=== PATIENT | female | born 1995 | race Caucasian/White ===

== ENCOUNTER 2017-06-06 16:17 | Outpatient (CLI) | payer BC, OTHER ==
[2017-06-06 17:15] VITALS: BP 123/66; PULSE 98; RESP 16; TEMP 98.2
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
== END 2017-06-06 17:05 | disposition home or self-care (01) ==
LOC: FBPOP 16:17
PROVIDERS: ATTEND Obstetrics & Gynecology Obstetrics
DX: O99.352 Diseases of the nervous system complicating pregnancy, second trimester (principal); G89.11 Acute pain due to trauma; Z3A.26 26 weeks gestation of pregnancy
CPT/HCPCS: 99213

== ENCOUNTER 2017-08-13 17:00 | Outpatient (CLI) | payer BC, OTHER ==
[2017-08-13 18:25] LABS: Appearance,Urine Clear (Clear); Bilirubin,Urine Negative (Negative); Blood,Urine Negative (Negative); Color,Urine Light Yellow; Glucose,Urine (UA) Negative (Negative); Ketones,Urine Negative (Negative); Leukocyte Esterase,Urine Negative (Negative); Nitrite,Urine Negative (Negative); PH, Urine 6.5 (5.0-8.0); Protein,Urine Negative (Negative); Specific Gravity,Urine 1.006 (1.001-1.035); Urobilinogen,Urine <2.0 mg/dL (<2.0)
[2017-08-13 18:26] LABS: Anisocytosis Slight; Basophils % (A) 0 %; Eosinophils # (A) 0.1 k/uL (0-0.7); Eosinophils % (A) 1 %; HCT 35.1 % (34.0-46.0); HGB 11.5 gm/dL (11.4-16.0); Lymphocytes # (A) 1.5 k/uL (1.0-4.8); Lymphocytes % (A) 18 %; MCH 28.6 pg (25.0-35.0); MCHC 32.7 g/dL (31.0-37.0); MCV 87.5 fL (80.0-100.0); Mean Platelet Volume 9.9; Monocytes # (A) 0.4 k/uL (0-1.0); Monocytes % (A) 4 %; Neutrophils % (A) 74 %; Platelet Count 176 k/uL (150-450); RBC 4.01 m/uL (3.80-5.40); RDW 16.7 % (11.5-15.5); WBC 8.1 k/uL (3.8-10.6)
[2017-08-13 18:48] VITALS: TEMP 98.3
[2017-08-13 19:13] LABS: ALT 23 U/L (9-52); AST 26 U/L (14-36); LDH 480 U/L (313-618)
[2017-08-13 19:42] VITALS: BP 133/82; PULSE 82; RESP 17
--- NOTE | 2017-08-20 08:08 | P.MSEPDOC ---
Presenting Problems - Arrival Data Date of Arrival on Unit: 08/13/17 Time of Arrival on Unit: 17:00 Mode of Transport: Ambulatory - Complaint OB-Reason for Admission/Chief Complaint: PIH Comment: headache and emesis x 1 this am and yesterday am x 1. heacache for 2 days. tylenol does not help. Medical History - Information : 1 Para: 0 Term: 0 : 0 Abortions: Spontaneous or Elective: 0 Number of Living Children: 0 - Gestational Age Gestational Age by WOODY (wks/days): 36 Weeks and 0 Days - History Complications: Other Comment: twin gestation. Review of Systems - Review of Systems Constitutional: No problems Breast: No problems ENT: No problems Cardiovascular: No problems Respiratory: No problems Gastrointestinal: No problems Genitourinary: No problems Musculoskeletal: No problems Neurological: No problems Skin: No problems Comment: headache Vital Signs - Temperature Temperature: 98.3 F Temperature Source: Oral - Pulse Right Brachial Pulse Rate: 82 Pulse Assessment Method: Automatic Cuff - Respirations Respiratory Rate: 17 Oxygen Delivery Method: Room Air - Blood Pressure Right Arm Blood Pressure: 133/82 Blood Pressure Mean: 99 Blood Pressure Source: Automatic Cuff Medical Screen Scoring (Pre) - Cervical Exam Dilation: Exam Deferred Effacement: Exam Deferred Membranes: Intact - Uterine Contractions Frequency: > or = 36 weeks =2 Duration: N/A Intensity: N/A - Maternal Vital Signs Maternal Temperature: N/A Maternal Blood Pressure: Systolic >139 = 2 Signs of Preeclampsia: Headache = 1 Maternal Respirations: N/A - Pain Assessment Pain Location and Character: Head Pain Scale Used: Numeric (1 - 10) Pain Intensity: 5 Pain Description: *Acute Pain Frequency: Intermittent Pain Duration: 2 Pain Duration Units: Days Pain Behavior: None Exhibited, Vocalization Pharmacological Interventions: PRN Medication - Maternal Trauma Maternal Trauma: N/A - Assessment Baseline FHR: 135 A 125 B Heart Rate - NICHD Category: Category I (Normal) = 0 NST: Reactive - Total Score Total Score (Pre): 5 - Level of Risk Level of Risk: Low (0-5) Physician Notification (Pre) - Physician Notified Physician Notified Date: 08/13/17 Physician Notified Time: 17:50 Physician/Practitioner Notifed:: katerina Spoke With: katerina New Order Received: Yes - Notification Comment Comment: [facility] labs and ua to be sent. Medical Screen Scoring (Post) - Cervical Exam Dilation: 1-3 cm = 1 Effacement: More than 50% = 2 Membranes: Intact - Uterine Contractions Frequency: N/A Duration: N/A Intensity: N/A - Maternal Vital Signs Maternal Temperature: N/A Maternal Blood Pressure: Systolic >139 = 2 Signs of Preeclampsia: Headache = 1 Maternal Respirations: N/A - Pain Assessment Pain Location and Character: Head Pain Scale Used: Numeric (1 - 10) Pain Intensity: 5 Pain Management Goal: 0 Pain Description: *Chronic, Dull Pain Radiation Location: n/a Pain Frequency: Constant Pain Duration: 2 Pain Duration Units: Days Pain Behavior: Vocalization Effects of Pain: none Pain Aggravating Factors: None Pharmacological Interventions: Discuss Pain Med Options, PRN Medication Non-Pharmacological Interventions: Darkened Room - Maternal Trauma Maternal Trauma: N/A - Assessment Heart Rate: 135-145 Heart Rate - NICHD Category: Category I (Normal) = 0 NST: Reactive Position: N/A Station: N/A - Total Score Total Score (Post): 6 - Post Treatment Level of Risk Post Treatment Level of Risk: Medium (6-9) Physician Notification (Post) - Physician Notified Physician Notified Date: 08/13/17 Physician Notified Time: 19:18 Physician/Practitioner Notified:: Katerina Spoke With: Katerina New Order Received: Yes (Discharge home) - Notification Comment Comment: To check cervix and discharge home if patient's cervix is the same as last weeks appt. Patient to follow up in morning for blood pressure check in office. Disposition - Disposition OB Disposition: Discharge to home Discharge Date: 08/13/17 Discharge Time: 19:25 I agree with the RN Medical Screening Exam: Yes Risk & Benefit of care provided described in d/c instruction: Yes Diagnosis: HEADACHE
== END 2017-08-13 19:25 | disposition home or self-care (01) ==
LOC: FBPOP 17:00
PROVIDERS: ATTEND Obstetrics & Gynecology
DX: O99.89 Other specified diseases and conditions complicating pregnancy, childbirth and the puerperium (principal); R51 Headache; Z3A.36 36 weeks gestation of pregnancy
CPT/HCPCS: 59025; 81003; 83615; 84450; 84460; 85025; 99215

== ENCOUNTER → 2020-04-13 | Outpatient (CLI) | payer OTHER ==
--- NOTE | 2020-04-13 13:01 | US ---
EXAMINATION TYPE: US thyroid st tissue head/neck DATE OF EXAM: 04/13/2020 COMPARISON: NONE CLINICAL HISTORY: E07.9; E04.0. GLAND SIZE: Right Lobe: 5.4 x 1.3 x 1.9 cm Overall Parenchyma: heterogenous Left Lobe: 5.4 x 1.2 x 1.5 cm Overall Parenchyma: heterogeneous Isthmus Thickness: 0.3 cm NODULES RIGHT: # of nodules measured on right: 0 LEFT: # of nodules measured on left: 0 ISTHMUS: # of nodules measured in the isthmus: 0 Bilateral neck scanned, no evidence of lymphadenopathy. Thyroid echotexture is heterogeneous. IMPRESSION: There could be underlying thyroiditis. No discrete nodule. 2017 ACR TI-RADS LEVEL: *Highest TI-RADS level nodule reported
== END | disposition home or self-care (01) ==
LOC: RADUSWWP 10:03
PROVIDERS: ATTEND Family Medicine
DX: E07.9 Disorder of thyroid, unspecified (principal); E04.0 Nontoxic diffuse goiter
CPT/HCPCS: 76536

== ENCOUNTER → 2022-03-14 | Outpatient (CLI) | payer OTHER ==
--- NOTE | 2022-03-14 09:56 | XR ---
EXAMINATION TYPE: XR foot complete LT DATE OF EXAM: 03/14/2022 COMPARISON: NONE HISTORY: Pain TECHNIQUE: Three views are submitted. FINDINGS: The osseous structures are intact. There is no acute fracture or dislocation. Joint spaces are p reserved. IMPRESSION: 1. No acute fracture or dislocation. If symptoms persist, follow-up exam in 7 to 10 days could be ob tained.
== END | disposition home or self-care (01) ==
LOC: RADXRYALE 09:16
PROVIDERS: ATTEND Physician Assistant
DX: M79.672 Pain in left foot (principal)

== ENCOUNTER 2022-04-11 07:51 | Day surgery (SDC) | payer OTHER ==
[2022-04-09 14:48] VITALS: BMI 31.5
[~2022-04-11 07:51] MED LIST: LACTATED RINGERS 1,000 ML IV SCH
[2022-04-11 09:05] VITALS: RESP 18; TEMP 98.2
[2022-04-11] MEDS ORDERED: PROPOFOL 10 MG/ML 20 ML VIAL IV ONE (09:45)
[2022-04-11] MEDS ORDERED: LIDOCAINE 2% INJ 20 MG/ML (2 ML VIAL) ONE (09:45)
--- NOTE | 2022-04-11 09:54 | P.PCN ---
Date of Procedure: 04/11/22 Procedure(s) Performed: BRIEF HISTORY: Patient is a 26-year-old, pleasant, white female scheduled for an upper endoscopy as a part of evaluation long-standing history of GERD and intermittent dysphagia to solids. PROCEDURE PERFORMED: Esophagogastroduodenoscopy with biopsy. PREOPERATIVE DIAGNOSIS: GERD/intermittent dysphagia to solids. IV sedation per anesthesia. PROCEDURE: After informed consent was obtained, the patient was brought into the endoscopy unit. IV sedation was administered by Anesthesia under continuous monitoring. Initially the Olympus GIF-140 video endoscope was inserted into the mouth. Esophagus intubated without any difficulty. It was gradually advanced into the stomach and duodenum and carefully examined. The bulb and the second part of the duodenum appeared normal. The scope at this time was withdrawn to the stomach, adequately insufflated with air, and upon careful examination, mucosa of the antrum, had moderate to severe gastritis and biopsies were done from this area. The body, cardia and the fundus appeared normal. The scope was then withdrawn into the esophagus. Small sliding type hiatal hernia noted. The GE junction was located at 39 cm from the incisors. The esophagus appeared normal. There were no erosions or ulcerations see but no evidence of esophageal stricture. Biopsies were done from the distal esophagus and the patient tolerated the procedure well. IMPRESSION: 1. Small hiatal hernia. 2. Mild diffuse gastritis. 3. No evidence of esophagitis or esophageal stricture RECOMMENDATIONS: The findings of this examination were discussed with the patient is a family. He was advised to follow with the biopsy results.. She'll continue with omeprazole 20 mg daily and follow antireflux measures.
[2022-04-11 10:19] VITALS: BP 117/78; PULSE 60
== END 2022-04-11 10:43 | disposition home or self-care (01) ==
LOC: ORWHC2ENDO 07:51
PROVIDERS: ATTEND Internal Medicine Gastroenterology
DX: K21.00 Gastro-esophageal reflux disease with esophagitis, without bleeding (principal); K29.50 Unspecified chronic gastritis without bleeding; K44.9 Diaphragmatic hernia without obstruction or gangrene; F17.200 Nicotine dependence, unspecified, uncomplicated; J45.909 Unspecified asthma, uncomplicated; F41.9 Anxiety disorder, unspecified; M79.7 Fibromyalgia; F32.A Depression, unspecified; Z79.899 Other long term (current) drug therapy
CPT/HCPCS: 81025; 88305; 43239; J2704; J2001

== ENCOUNTER → 2023-07-30 | Outpatient (CLI) | payer OTHER ==
--- NOTE | 2023-07-30 17:01 | CT ---
EXAMINATION TYPE: CT iac w con CT DLP: 150.0 mGycm, Automated exposure control for dose reduction was used. 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 COMPARISON: None. TECHNIQUE: Multiple thin axial images were obtained through the temporal bones and internal auditory canals. Additional coronal reformatted images were obtained. No IV contrast was utilized. STENVER a nd POSCHL views were created on a separate work station. CT Contrast: Contrast used:100ml mL of Isovue 300 with IV Contrast, none. FINDINGS: Right Temporal Bone: External Ear: The external auditory canal is unremarkable, The tympanic membrane is present and unrem arkable. Middle Ear: The ossicles demonstrate a normal appearance. Prussak's space is clear and the scutum i s intact. There is no evidence of osseous erosion and the tegmen tympani is intact. Inner Ear: Cochlea, vestibule and semi circular canals are unremarkable. No evidence of carotid erika l dehiscence. Two and a half turns of the cochlea are identified. The vestibular aqueduct is not enl arged. Mastoid Air Cells: The mastoid air cells are clear. The tegmen mastoideum is intact. The aditus ad an trum is clear. Internal Auditory Canal: The internal auditory canal is unremarkable. Left Temporal Bone: External Ear: The external auditory canal is unremarkable, The tympanic membrane is present and unrem arkable. Middle Ear: The ossicles demonstrate a normal appearance. Prussak's space is clear and the scutum i s intact. There is no evidence of osseous erosion and the tegmen tympani is intact. Inner Ear: Cochlea, vestibule and semi circular canals are unremarkable. No evidence of carotid erika l dehiscence. Two and a half turns of the cochlea are identified. The vestibular aqueduct is not enl arged. Mastoid Air Cells: The mastoid air cells are clear. The tegmen mastoideum is intact. The aditus ad an trum is clear. Internal Auditory Canal: The internal auditory canal is unremarkable. Other: Moderate paranasal sinus disease with mucosal thickening throughout the secretions in the righ t maxillary sinus and mild mucosal thickening and retention cysts in the left. There is mucosal thick ening and secretions within the ethmoid air cells bilaterally. Visualized intracranial vasculature ap pears patent. IMPRESSION: 1. The temporal bones are relatively symmetric. No abnormality on the right correlate with patient's symptoms. 2. Patent intracranial vasculature. 3. Moderate paranasal sinus disease right greater than left.
== END | disposition home or self-care (01) ==
LOC: RADCTMAIN 16:08
PROVIDERS: ATTEND Otolaryngology
DX: H93.11 Tinnitus, right ear (principal); J34.89 Other specified disorders of nose and nasal sinuses
CPT/HCPCS: 70481; Q9967